=== PATIENT | female | born 1930 | race Caucasian/White ===

== ENCOUNTER 2017-06-15 15:39 | Inpatient (IN) | payer OTHER ==
[~2017-06-15] VITALS: Ht 152.4 cm; Wt 53.6 kg
[~2017-06-15 15:39] MED LIST: ALLO100 PO; ALPR.5 PO; ASPI81EC PO; Aspir-Low81 MG PO; BISA10S PR; CALCAVITD PO; CALCAVITDA PO; CARV3.125 PO; CEPH250A PO; CEPH500 PO; CIPR500 PO; CLOP75 PO; DOCU100 PO; ESCI10 PO; ESCI20 PO; FERR325 PO; FURO20 PO; Flagyl500 MG PO; GAVILAX17 GM PO; HYDACE10B PO; HYDACE5 PO; HYDACE5325 PO; HYDR-86 PO; ISOD40ER PO; ISOMON20 PO; LEVSOD100 PO; LEVSOD75 PO; LISI10 PO; LISI5 PO; LOPE2C PO; LORA1 PO; LOVA20 PO; LOVA40 PO; MELA3 PO; METO25ER PO; METR250 PO; METR500 PO; MULVITMIND PO; NIFE30ER PO; NITR.2TP TOP; NITR.4SL SL; NORT10 PO; Norco 5-325 Ta1 EACH PO; OMEP10ER PO; PANT20 PO; PROACE100 PO; PROM25 PO; PROM25S PR; Prozac20 MG PO; QUET100 PO; QUET200 PO; RANI150 PO; VALP250 PO; VALPROIC ACID; Zofran4 MG PO; [UNRECOGNIZED DRUG - REMARK]; [UNRECOGNIZED DRUG - REMARK]
[2017-06-15 16:19] LABS: BASOPHILS ABSOLUTE AUTO 0.05 K/mm3 (0.00-0.23); BASOPHILS PERCENT AUTO 0 % (0-2); EOSINOPHILS ABSOLUTE AUTO 0.23 K/mm3 (0.00-0.68); EOSINOPHILS PERCENT AUTO 2 % (0-6); Hematocrit 35.5 % (33.0-51.0); IMMATURE GRAN ABSOLUTE AUTO 0.04 K/mm3 (0.00-0.10); IMMATURE GRAN PERCENT AUTO 0 % (0-1); LYMPHOCYTES ABSOLUTE AUTO 2.44 K/mm3 (0.84-5.20); LYMPHOCYTES PERCENT AUTO 20 % (21-46); MONOCYTES ABSOLUTE AUTO 1.37 K/mm3 (0.16-1.47); MONOCYTES PERCENT AUTO 11 % (4-13); Mean Corpuscular HGB 29.3 pg (26.0-34.0); Mean Corpuscular Volume 94 fL (80-100); Mean Platelet Volume 10.8 fL (9.1-12.4); NEUTROPHILS ABSOLUTE AUTO 8.13 K/mm3 (1.96-9.15); NEUTROPHILS PERCENT AUTO 66 % (41-73); Platelet Count 172 K/mm3 (150-400); RDW Coefficient Variation 13.9 % (11.7-14.2); RDW Standard Deviation 48.2 fL (35.1-46.3); Red Blood Cell Count 3.76 M/mm3 (3.80-5.20); White Blood Cell Count 12.26 K/mm3 (4.00-11.30)
[2017-06-15 16:53] LABS: Albumin, Blood 3.1 g/dL (3.4-5.0); Albumin/Globulin Ratio 0.9 (0.8-1.8); Bun/Creatinine Ratio 21.7 (12.0-20.0); Creatinine, Blood 1.57 mg/dL (0.40-1.00); Globulin, Blood 3.5 g/dL (2.2-4.0); Potassium, Blood 3.9 mmol/L (3.5-5.5); Total Protein, Blood 6.6 g/dL (6.4-8.2)
[2017-06-15] MEDS ORDERED: ESCI10 PO (22:36)
[2017-06-15] MEDS ORDERED: ATOR80 PO (22:36)
[2017-06-15] MEDS ORDERED: AMLO10 PO (22:44)
[2017-06-15] MEDS ORDERED: ALLO100 PO (22:44)
[2017-06-15] MEDS ORDERED: PANT20 PO (22:45)
[2017-06-15] MEDS ORDERED: PRED5 PO (22:45)
[2017-06-16 03:31] LABS: Source, Urine Clean Catch
[2017-06-16 03:33] LABS: Appearance, Urine Cloudy (Clear); Bilirubin, Urine Neg (Neg); Blood, Urine 3+ (Neg); Color, Urine Yellow (P-Yellow); Glucose Qualitative, Urine Neg (Neg); Ketones, Urine Neg (Neg); Leukocyte Esterase, Urine 3+ (Neg); Nitrite, Urine Pos (Neg); Protein, Urine 2+ (Neg); Urobilinogen, Urine NORM (Normal)
[2017-06-16 03:43] LABS: Bacteria Many /hpf; Red Blood Cells, Urine Rare /hpf (0-2); Squamous Epithelial Cells Few /hpf (Few); White Blood Cells, Urine TNTC /hpf (0-5)
[2017-06-16] MEDS ORDERED: QUET25 PO (03:47)
[2017-06-16 05:40] LABS: BASOPHILS ABSOLUTE AUTO 0.04 K/mm3 (0.00-0.23); BASOPHILS PERCENT AUTO 0 % (0-2); EOSINOPHILS ABSOLUTE AUTO 0.25 K/mm3 (0.00-0.68); EOSINOPHILS PERCENT AUTO 2 % (0-6); Hematocrit 34.6 % (33.0-51.0); Hemoglobin 10.8 g/dL (11.5-16.0); IMMATURE GRAN ABSOLUTE AUTO 0.04 K/mm3 (0.00-0.10); IMMATURE GRAN PERCENT AUTO 0 % (0-1); LYMPHOCYTES ABSOLUTE AUTO 1.96 K/mm3 (0.84-5.20); LYMPHOCYTES PERCENT AUTO 18 % (21-46); MONOCYTES ABSOLUTE AUTO 1.19 K/mm3 (0.16-1.47); MONOCYTES PERCENT AUTO 11 % (4-13); Mean Corpuscular HGB 29.4 pg (26.0-34.0); Mean Corpuscular HGB Conc 31.2 g/dL (31.5-36.5); Mean Corpuscular Volume 94 fL (80-100); Mean Platelet Volume 10.9 fL (9.1-12.4); NEUTROPHILS ABSOLUTE AUTO 7.73 K/mm3 (1.96-9.15); NEUTROPHILS PERCENT AUTO 69 % (41-73); Platelet Count 152 K/mm3 (150-400); RDW Coefficient Variation 13.7 % (11.7-14.2); RDW Standard Deviation 47.7 fL (35.1-46.3); Red Blood Cell Count 3.67 M/mm3 (3.80-5.20); White Blood Cell Count 11.21 K/mm3 (4.00-11.30)
[2017-06-16 06:21] LABS: Albumin, Blood 2.9 g/dL (3.4-5.0); Albumin/Globulin Ratio 0.8 (0.8-1.8); Bilirubin, Total 0.7 mg/dL (0.1-1.0); Bun/Creatinine Ratio 21.1 (12.0-20.0); Creatinine, Blood 1.42 mg/dL (0.40-1.00); Globulin, Blood 3.6 g/dL (2.2-4.0); Potassium, Blood 3.9 mmol/L (3.5-5.5); Total Protein, Blood 6.5 g/dL (6.4-8.2)
[2017-06-18] MEDS ORDERED: METR500 PO (11:34)
[2017-06-18] MEDS ORDERED: CIPR250 PO (11:34)
[2017-06-18] MEDS ORDERED: SACC250C PO (13:33)
== END 2017-06-18 13:29 | disposition home or self-care (01) | DRG 392 ==
LOC: ER 15:39 → MEDS 23:17
PROVIDERS: Emergency Medicine; Internal Medicine
DX: K57.32 Diverticulitis of large intestine without perforation or abscess without bleeding (principal); T82.856A Stenosis of peripheral vascular stent, initial encounter; E86.0 Dehydration; I73.9 Peripheral vascular disease, unspecified; E03.9 Hypothyroidism, unspecified; E78.5 Hyperlipidemia, unspecified; I10 Essential (primary) hypertension; M10.9 Gout, unspecified; Z96.89 Presence of other specified functional implants; K21.9 Gastro-esophageal reflux disease without esophagitis; F41.8 Other specified anxiety disorders; I25.10 Atherosclerotic heart disease of native coronary artery without angina pectoris; I25.2 Old myocardial infarction; Z79.02 Long term (current) use of antithrombotics/antiplatelets; Z79.82 Long term (current) use of aspirin; Z79.899 Other long term (current) drug therapy; Z88.5 Allergy status to narcotic agent; Z88.0 Allergy status to penicillin; Z87.891 Personal history of nicotine dependence
CPT/HCPCS: 36415; 73502; 74176; 80053; 81001; 85025; 87077; 87081; 87086; 87186; 87493; 93926; 96374; 97116; 97161; 97530; 99285; C9113; G8978; G8979; G8980; J0696; J1170; J1650; J1956; J3010; J7030